=== PATIENT | male | born 1985 | race Caucasian/White ===

== ENCOUNTER 2025-01-17 10:19 | Outpatient (REF) | payer OTHER, SELFPAY ==
[2025-01-17 11:17] LABS: MANUAL DIFF FLAG NO
[2025-01-17 11:23] LABS: Basophils Percent Auto 0.2 % (0-2); Eosinophils Absolute Auto 0.1 X10*3/uL (0.0-0.4); Hematocrit 44.2 % (42.0-52.0); Hemoglobin 15.2 g/dl (14.0-18.0); Imm Gran Abs Auto 0.01 X10*3/uL (0.00-0.03); Imm Gran Pct Auto 0.2 % (0.0-0.4); Lymphocytes Percent Auto 42.4 % (20-40); Mean Corpuscular HGB Conc 34.4 g/dl (31.0-36.0); Mean Corpuscular Hemoglobin 31.3 pg (27.0-33.0); Mean Corpuscular Volume 90.9 fL (80.0-98.0); Mean Platelet Volume 9.6 fL (9.4-12.4); Monocytes Absolute Auto 0.4 X10*3/uL (0.1-1.2); Monocytes Percent Auto 9.3 % (2-11); Neutrophils Absolute Auto 2.1 x10*3/uL (2.0-8.3); Neutrophils Percent Auto 44.9 % (45-73); Platelet Count 196 X10*3/uL (160-400); Red Blood Count 4.86 X10*6/uL (4.60-5.80); Red Cell Distribution Width 12.7 % (11.0-16.0); White Blood Count 4.6 X10*3/uL (4.8-10.8)
--- OUTSIDE RECORDS SUMMARY | 2025-01-17 11:38 | XMS_ITS | Clinical Summary ---
Author Organization [employer] Address [address] [facility] 7[address] [place] [address] Care Team Providers Care Manager Statistics Name Role Phone Leo Card MD Primary Care Provider [phone] Allergies No known active allergies Encounters Date Type Department Care Team Description 01/10/2025 9:00 AM EDT Office Visit [facility] [address] [place] [address] [phone] Leo Card MD RUQ pain (Primary Dx); Herpes genitalis in men; Screening for diabetes mellitus; Screening for cholesterol level; Screening examination for STI 01/10/2025 Travel 01/09/2025 Telephone [facility] [address] [place] [address] [phone] Leo Card MD CHART PREP 01/01/2025 Patient Outreach [facility] [address] [place], [place] [phone] Leo Card MD Pre-visit Planning (SDOH negative, Tobacco screening negative) from Last 3 Months Immunizations Name Administration Dates Next Due Hep A / Hep B 12/13/2017,02/14/2017 Hep A, Adult 02/14/2017 Hep B, adult 03/17/2017 MMR 02/14/2017 Td (adult), 5 Lf tetanus tox oid, preservative free, adsorbed 02/06/2014 Tdap 01/10/2025 Family History Medical History Relation Name Comments Diabetes Father Relation Name Status Comments Father Social History Tobacco Use Types Packs/Day Years Used Date Smoking Tobacco: Never Smokeless Tobacco: Never Tobacco Cessation:Counseling Given: Not Answered Alcohol Use Standard Drinks/Week Comments Never 0 (1 standard drink = 0.6 oz pur e alcohol) Depression Answer Date Recorded Patient Health Questionnaire-9 Score 13 01/10/2025 Patient Health Questionnaire-9 Score 13 01/10/2025 Last PHQ-9: Questionnaire Data Not on file 0 01/10/2025 Housing Stability Answer Date Recorded What is your housing situation today? I have je johnson 01/01/[address] you li ve. Do you have problems with any of the following? None of the above 01/01/2025 Food Insecurity Answer Date Recorded Within the past 12 months, y ou worried that your food would run out before you got money to buy more: Never True 01/01/2025 Within the past 12 months,th e food you bought just didn't last and you didn't have enough money to get more: Never True Transportation Answer Date Recorded In the past 12 months, has l ack of transportation kept you from medical appts, meetings, work or from getting things needed for daily living? No 01/01/2025 Utilities Answer Date Recorded In the past 12 months, has t he electric, gas, oil or water company threatened to shut off services in your home? 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 Not on file Not on file Last Filed Vital Signs Vital Sign Reading Time Taken Comments Blood Pressure 127/86 01/10/2025 9:14 AM EDT Pulse 78 01/10/2025 9:14 AM EDT Temperature 36.6 ??C (97.8 ??F) 01/10/2025 9:14 AM ED T Respiratory Rate 18 01/10/2025 9:14 AM EDT Oxygen Saturation 98% 01/10/2025 9:14 AM EDT Inhaled Oxygen Concentration - - Weight 92.7 kg (204 lb 6.4 oz) 01/10/2025 9:14 A M EDT Height 165.1 cm (5' 5 ) 01/10/2025 9:14 AM EDT Body Mass Index 34.01 01/10/2025 9:14 AM EDT Plan of Treatment Health Maintenance Due Date Last Done Comments HIV Screening 1985 Lipid Panel 1985 Family Planning (PISQ) 2000 Hepatitis C Screening 2003 COVID-19 Vaccine (3 - 2023-2 5 season) 2024 12/12/2021, 11/16/2021 Influenza Vaccine (#1) 2024 Alcohol/Substance Use Screening 01/10/2026 01/10/2025 Depression Screening 01/10/2026 01/10/2025, 01/10/2025 SDOH Screening 01/10/2026 01/10/2025 Tobacco Screening 01/10/2026 01/10/2025 DTaP/Tdap/Td Vaccines (2 - T d or Tdap) 01/10/2035 01/10/2025, 02/06/2014 Zoster Vaccines (1 of 2) 2035 RSV Patients and Patients Aged 60 years or older (1 - 1-dose 75+ series) 2060 Hepatitis A Vaccines Aged Out 12/13/2017, 02/14/2017, 02/14/2017 No longer eligible based on patient's age to complete this topic Hepatitis B Vaccines Completed 12/13/2017, 03/17/2017, 02/14/2017 HIB Vaccines Aged Out No longer eligi ble based on patient's age to complete this topic HPV Vaccines Aged Out No longer eligi ble based on patient's age to complete this topic IPV Vaccines Aged Out No longer eligi ble based on patient's age to complete this topic Meningococcal Vaccine Aged Out No denise clark eligible based on patient's age to complete this topic Pneumococcal Vaccine: Pediatrics (0 to 5 Years) and At-Risk Patients (6 to 49) Years) Aged Out No longer eligible b ased on patient's age to complete this topic RSV under 20 months Aged Out No longe r eligible based on patient's age to complete this topic Rotavirus Vaccines Aged Out No longer eligible based on patient's age to complete this topic Procedures Procedure Name Priority Date/Time Associated Diagnosis Comments CBC WITH AUTO DIFFERENTIAL Routine 01/17/2025 10:22 AM EDT RUQ pain from Last 3 Months Results * (ABNORMAL) CBC auto differential (01/17/2025 10:22 AM EDT) White Blood Count 4.6(L) 4.8 - 10.8 X10*3/uL [facility] Red Blood Count 4.86 4.60 - 5.80 X10*6/uL [facility] Hemoglobin 15.2 14.0 - 18.0 g/dl [facility] Hematocrit 44.2 42.0 - 52.0 % [facility] Mean Corpuscular Volume 90.9 80.0 - 98.0 fL [facility] Mean Corpuscular Hemoglobin 31.3 27.0 - 33.0 pg [facility] Mean Corpuscular HGB Conc 34.4 31.0 - 36.0 g/dl [facility] Red Cell Distribution Width 12.7 11.0 - 16.0 % [facility] Platelet Count 196 160 - 400 X10*3/uL [facility] Mean Platelet Volume 9.6 9.4 - 12.4 fL [facility] Neutrophils Percent Auto 44.9(L) 45 - 73 % [facility] Imm Gran Pct Auto 0.2 0.0 - 0.4 % [facility] Lymphocytes Percent Auto 42.4(H) 20 - 40 % [facility] Monocytes Percent Auto 9.3 2 - 11 % [facility] Eosinophils Percent Auto 3.0 0 - 4 % [facility] Basophils Percent Auto 0.2 0 - 2 % [facility] NRBC Pct Auto 0.0 0.0 - 0.2 /100WBC [facility] Neutrophils Absolute Auto 2.1 2.0 - 8.3 x10*3/uL [facility] Imm Gran Abs Auto 0.01 0.00 - 0.03 X10*3/uL [facility] Lymphocytes Absolute Auto 2.0 1.2 - 4.9 X10*3/uL [facility] Monocytes Absolute Auto 0.4 0.1 - 1.2 X10*3/uL [facility] Eosinophils Absolute Auto 0.1 0.0 - 0.4 X10*3/uL [facility] Basophils Absolute Auto 0.0 0.0 - 0.2 X10*3/uL [facility] NRBC Abs Auto 0.000 0.0 - 0.012 X10*3/uL [facility] Blood Venous blood specimen / Unknown 01/17/2025 10:22 AM EDT 01/17/2025 11:14 AM EDT us Leo Name LAB BLOOD ORDERABLES Final Resul t [facility] [address] [place] [phone] [phone] from Last 3 Months Insurance FOR[facility]LY [facility] OPEN ACCESS Care Teams Manager Statistics Relationship Specialty Start Date End Date Name, MD Leo [address] [place] [phone] PCP - General Internal Medicine 01/10/25
[2025-01-17 12:00] LABS: Alanine Aminotransferase 36 U/L (0-40); Albumin Level 4.5 g/dL (3.5-5.0); Alkaline Phosphatase 70 U/L (39-117); Anion Gap 10 (12-20); Aspartate Amino Transferase 30 U/L (5-37); Bilirubin Total 0.6 mg/dL (0.0-1.0); Blood Urea Nitrogen 25 mg/dL (9-16); Calcium 9.5 mg/dL (8.4-10.2); Carbon Dioxide 29 mmol/L (22-29); Chloride 106 mmol/L (96-108); Cholesterol 165 mg/dL (<200); Estimated Glomerular Filt Rate > 60; Glucose Random 84 mg/dL (60-115); HDL Cholesterol 36 mg/dL (>40); LDL Cholesterol Calculated 100 mg/dL (<100); Potassium 4.3 mmol/L (3.3-5.1); Sodium 141 mmol/L (135-145); Total Protein 7.5 g/dL (6.5-8.0); Triglycerides 146 mg/dL (<150)
[2025-01-17 12:18] LABS: HBS Num1 > 1000.00 mIU/mL (0-7.99); HIV AB/AG Nonreactive (Nonreactive); HIV Num 1 0.06 S/CO (0.00-0.99); Hepatitis B Surface Antigen Negative (Negative); ~Hepatitis B Surface Antibody REACTIVE (Nonreactive); ~Hepatitis C Antibody Nonreactive (Nonreactive)
[2025-01-17 13:29] LABS: CT PCR NOT DETECTED (Not Detect.); NG PCR NOT DETECTED (Not Detect.)
[2025-01-18 09:44] LABS: RPR Rapid Plasma Reagin NON-REACTIVE (NON-REACTIVE)
== END 2025-01-17 10:20 | disposition home or self-care (01) ==
LOC: HO.HHCL 10:19
PROVIDERS: Visit Provider Internal Medicine Geriatric Medicine
DX: Z11.3 Encounter for screening for infections with a predominantly sexual mode of transmission (principal); R10.11 Right upper quadrant pain; Z13.1 Encounter for screening for diabetes mellitus; Z13.220 Encounter for screening for lipoid disorders
CPT/HCPCS: 80053; 80061; 85025; 86592; 86706; 86803; 87340; 87389; 87491; 87591

== ENCOUNTER 2025-02-22 08:39 | Outpatient (REF) | payer OTHER, SELFPAY ==
--- NOTE | ~2025-02-22 | US_ITS ---
CLINICAL HISTORY: RUQ pain on and off sometimes after meals for the past 10 years US ABDOMEN COMPLETE Comparison: None Findings: The visualized portions of the pancreas appear unremarkable. The visualized segments of the IVC and abdominal aorta are normal caliber. The liver is diffusely echogenic. There is a small calcification in the right hepatic lobe. The right hepatic lobe measures 13.8 cm. There is no intrahepatic bile duct dilatation. Common bile duct measures 2.8 mm. There are 1.8 cm and 0.9 cm gallbladder calculi. No significant gallbladder wall thickening. A positive or sonographic Vargas sign was not indicated on the provided worksheet. The main portal vein is antegrade. Right kidney length is 10.4 cm. No hydronephrosis. Left kidney length is 10.3 cm. No hydronephrosis. The spleen is normal. No ascites. IMPRESSION: 1. Cholelithiasis. No significant gallbladder wall thickening or pericholecystic fluid. 2. No biliary ductal dilatation. 3. Hepatic steatosis. 4. No hydronephrosis. This document has been electronically signed by: Lilly Solis DO on 02/22/2025 16:24:17
--- OUTSIDE RECORDS SUMMARY | 2025-02-22 09:05 | XMS_ITS | Clinical Summary ---
Author Organization [employer] Address [address] [place] [address] 7[address] [place] [address] Care Team Providers Care Paramedic Instructor Name Role Phone Leo Card MD Primary Care Provider [phone] Allergies No known active allergies Encounters Date Type Department Care Team Description 01/24/[address] [phone] Susi Smiley [place] april recalls 01/24/[address] [phone] Eleanor Chacon RN 01/10/2025 9:00 AM EDT Office Visit [address] [phone] Leo Card MD RUQ pain (Primary Dx); Herpes genitalis in men; Screening for diabetes mellitus; Screening for cholesterol level; Screening examination for STI 01/10/2025 Travel 01/09/[address] [phone] Leo Card MD CHART PREP 01/01/2025 Patient Outreach [facility] [address] [place], [place] [phone] Leo Card MD Pre-visit Planning (SDOH negative, Tobacco screening negative) from Last 3 Months Immunizations Immunization Administration Dates Next Due Hep A / [...] Health Maintenance Due Date Last Done Comments Disability Screening 1985 Family Planning (PISQ) 2000 COVID-19 Vaccine (3 - 2023-2 5 season) 2024 12/12/2021, 11/16/2021 Influenza Vaccine (Season Ended) 2025 Depression Monitoring 07/12/2025 01/10/2025 , 01/10/2025 Alcohol/Substance Use Screening 01/10/2026 01/10/2025 SDOH Screening 01/10/2026 01/10/2025 Tobacco Screening 01/10/2026 01/10/2025 Lipid Panel 01/17/2030 01/17/2025 DTaP/Tdap/Td Vaccines (2 - T d or Tdap) 01/10/2035 01/10/2025, 02/06/2014 Zoster Vaccines (1 of 2) 2035 RSV Patients and Patients Aged 60 years or older (1 - 1-dose 75+ series) 2060 Hepatitis A Vaccines Aged Out 12/13/2017, 02/14/2017, 02/14/2017 No longer eligible based on patient's age to complete this topic Hepatitis B Vaccines Completed 12/13/2017, 03/17/2017, 02/14/2017 HIV Screening Completed 01/17/2025 Hepatitis C Screening Completed 01/17/2025 HIB Vaccines Aged Out No longer eligi ble based on patient's age to complete this topic HPV Vaccines Aged Out No longer eligi ble based on patient's age to complete this topic IPV Vaccines Aged Out No longer eligi ble based on patient's age to complete this topic Meningococcal B Vaccine Aged Out No l onger eligible based on patient's age to complete [...] Procedure Name Priority Date/Time Associated Diagnosis Comments LIPID PANEL, STANDARD Routine 01/17/2025 10:22 AM EDT Screening for cholesterol level RPR (MONITOR) W/REFL TITER Routine 01/17/2025 10:22 AM EDT Screening examination for STI HEPATITIS B SURFACE ANTIGEN, EIA Routine 01/17/2025 10:22 AM EDT Screening examination for STI HEPATITIS B SURFACE ANTIBODY, QUALITATIVE Routine 01/17/2025 10:22 AM EDT Screening examination for STI HEPATITIS C AB W/REFL TO HCV RNA, QN, PCR Routine 01/17/2025 10:22 AM EDT Screening examination for STI HIV 1/2 ANTIGEN/ANTIBODY, FOURTH GENERATION W/RFL Routine 01/17/2025 10:22 AM EDT Screening examination for STI COMPREHENSIVE METABOLIC PANEL Routine 01/17/2025 10:22 AM EDT Screening for diabetes mellitus RUQ pain CBC WITH AUTO DIFFERENTIAL Routine 01/17/2025 10:22 AM EDT RUQ pain CHLAMYDIA/N. GONORRHOEAE RNA, TMA, UROGENITAL Routine 01/17/2025 10:22 AM EDT Screening examination for STI from Last 3 Months Results * (ABNORMAL) CBC auto differential (01/17/2025 10:22 AM EDT) White Blood Count 4.6(L) 4.8 - 10.8 X10*3/uL [facility] Red Blood Count 4.86 4.60 - 5.80 X10*6/uL [facility] Hemoglobin 15.2 14.0 - 18.0 g/dl [facility] Hematocrit 44.2 42.0 - 52.0 % [facility] Mean Corpuscular Volume 90.9 80.0 - 98.0 fL [facility] Mean Corpuscular Hemoglobin 31.3 27.0 - 33.0 pg [facility] Mean Corpuscular HGB Conc 34.4 31.0 - 36.0 g/dl [facility] Red Cell Distribution Width 12.7 11.0 - 16.0 % [facility] Platelet Count 196 160 - 400 X10*3/uL [facility] Mean Platelet Volume 9.6 9.4 - 12.4 fL [facility] Neutrophils Percent Auto 44.9(L) 45 - 73 % [facility] Imm Gran Pct Auto 0.2 0.0 - 0.4 % [facility] Lymphocytes Percent Auto 42.4(H) 20 - 40 % [facility] Monocytes Percent Auto 9.3 2 - 11 % [facility] Eosinophils Percent Auto 3.0 0 - 4 % [facility] Basophils Percent Auto 0.2 0 - 2 % [facility] NRBC Pct Auto 0.0 0.0 - 0.2 /100WBC [facility] Neutrophils Absolute Auto 2.1 2.0 - 8.3 x10*3/uL [facility] Imm Gran Abs Auto 0.01 0.00 - 0.03 X10*3/uL [facility] Lymphocytes Absolute Auto 2.0 1.2 - 4.9 X10*3/uL [facility] Monocytes Absolute Auto 0.4 0.1 - 1.2 X10*3/uL [facility] Eosinophils Absolute Auto 0.1 0.0 - 0.4 X10*3/uL [facility] Basophils Absolute Auto 0.0 0.0 - 0.2 X10*3/uL [facility] NRBC Abs Auto 0.000 0.0 - 0.012 X10*3/uL [facility] Blood Venous blood specimen / Unknown 01/17/2025 10:22 AM EDT 01/17/2025 11:14 AM EDT us Leo Card MD LAB BLOOD ORDERABLES Final Resul t Performing Organization Address [facility] Co de Phone Number [facility] [address] [place] [phone] * Hepatitis C Antibody with Reflex to HCV, RNA, Quantitative, Real-Time PCR (01/17/2025 10:22 AM EDT) [facility] Hepatitis C Antibody Nonreactive Nonreactive [facility] Comment:Antibodies to HCV no t detected; does not exclude early acuteHCV infection. Blood Venous blood specimen / Unknown 01/17/2025 10:22 AM EDT 01/17/2025 11:14 AM EDT us Leo Card MD LAB BLOOD ORDERABLES Final Resul t Performing Organization Address [facility] Co de Phone Number [facility] [address] [place] [phone] * Chlamydia/N. Gonorrhoeae RNA, TMA, Urogenitial (01/17/2025 10:22 AM EDT) [facility] CT PCR NOT DETECTED Not Detect. [facility] Comment:A not detected test result does not exclude the possibilityof infection because test results can be affected byimproper specimen collection, concurrent antibiotic therapy,or the number of organisms in the specimen which may bebelow the sensitivity of the test. As with many diagnostictests, results from the Xpert CT/NG assay should beinterpreted in conjunction with other laboratory andclinical data available to the clinician.Xpert CT/NG performance has not been evaluated in patientsless than 14 years of age. The assay should not be used forthe evaluationof suspected sexual abuse or for other medico-legalindications. Additional testing is recommended in anycircumstance when false positive or false negative resultscould lead to adverse medical, social or psychologicalconsequences. NG PCR NOT DETECTED Not Detect. [facility] Comment:A not detected test result does not exclude the possibilityof infection because test results can be affected byimproper specimen collection, concurrent antibiotic therapy,or the number of organisms in the specimen which may bebelow the sensitivity of the test. As with many diagnostictests, results from the Xpert CT/NG assay should beinterpreted in conjunction with other laboratory andclinical data available to the clinician.Xpert CT/NG performance has not been evaluated in patientsless than 14 years of age. The assay should not be used forthe evaluationof suspected sexual abuse or for other medico-legalindications. Additional testing is recommended in anycircumstance when false positive or false negative resultscould lead to adverse medical, social or psychologicalconsequences. Urine (Urine, Random) 01/17/2025 10:22 AM EDT 01/17/2025 11:13 AM EDT Narrative [facility] - 01/17/2025 1:29 PM EDT Urine us Leo Card MD LAB MICROBIOLOGY - GENERAL ORDER ABDULAZIZ Final Result Performing Organization Address City/[facility]/ZIP Co de Phone Number [facility] [address] [place] [phone] * Hepatitis B surface antigen, EIA (01/17/2025 10:22 AM EDT) Pathologist [facility] Hepatitis B Surface Ag Negative Negative [facility] Blood Venous blood specimen / Unknown 01/17/2025 10:22 AM EDT 01/17/2025 11:14 AM EDT us Leo Card MD LAB BLOOD ORDERABLES Final Resul t Performing Organization Address [facility] Co de Phone Number [facility] [address] [place] [phone] * RPR (Monitor) with Reflex to??Titer (01/17/2025 10:22 AM EDT) RPR (Monitor) w/Refl Titer NON-REACTI VE NON-REACT CAROLINE [facility] Comment:THIS TEST WAS PERFOR MED AT:[facility] [place] [phone] AGUSTIN MD Rapid Plasma Reagin Ab Titer TNP [facility] Blood Venous blood specimen / Unknown 01/17/2025 10:22 AM EDT 01/17/2025 11:14 AM EDT us Leo Card MD LAB BLOOD ORDERABLES Final Resul t Performing Organization Address City/[facility]/ZIP Co de Phone Number [facility] [address] [place] [phone] * HIV-1/2 Antigen and Antibodies, Fourth Generation, with Reflexes (01/17/2025 10:22 AM EDT) [facility] HIV AB/AG Nonreactive Nonreactive [facility] Comment:HIV-1 p24 Ag and/or HIV-1/HIV-2 Ab not detected.A test result that is nonreactive does not exclude thepossibility of exposure to or infection with HIV-1 and/orHIV-2. Nonreactive results in this assay for individualswith prior exposure to HIV-1 and/or HIV-2 may be due toantigen and antibody levels that are below the limit ofdetection of this assay.The [id number] HIV Ag/Ab Combo assay result andsupplemental assay results should be interpreted inconjunction with the patient's clinical presentation,history and other laboratory results. If the results areinconsistent with clinical evidence, additional testing issuggested to confirm the result. Blood Venous blood specimen / Unknown 01/17/2025 10:22 AM EDT 01/17/2025 11:14 AM EDT us Leo Card MD LAB BLOOD ORDERABLES Final Resul t Performing Organization Address City/[facility]/ZIP Co de Phone Number [facility] [address] [place] [phone] * Hepatitis B Surface Antibody, Qualitative (01/17/2025 10:22 AM EDT) ~Hepatitis B Surface Antibody REACTIVE Nonreactive [facility] Comment:REACTIVE: > 11.99 mI U/mL Blood Venous blood specimen / Unknown 01/17/2025 10:22 AM EDT 01/17/2025 11:14 AM EDT us Leo Card MD LAB BLOOD ORDERABLES Final Resul t Performing Organization Address [facility] Co de Phone Number [facility] [address] [place] [phone] * (ABNORMAL) Lipid Panel, Standard (01/17/2025 10:22 AM EDT) Triglycerides 146 <150 mg/dL [facility] Comment:Desirable Triglyceri de: less than 150 mg/dLBorderline High Triglyceride 150-199 mg/dLHigh Triglyceride: 200-499 mg/dLVery High Triglyceride: greater than or equal to 5OO mg/dL Cholesterol 165 <200 mg/dL [facility] Comment:Desirable Cholestero l: less than 200 mg/dLBorderline High Cholesterol: 200-239 mg/dLHigh Cholesterol: greater than 239 mg/dL LDL Cholesterol Calculated 100(H) <100 mg/dL [facility] Comment:Desirable LDL: less than 100 mg/dLNear Optimal/Above Optimal LDL: 110- 129 mg/dLBorderline High LDL: 130-159 mg/dLHigh LDL: 160-189 mg/dLVery High LDL: greater than or equal to 190 mg/dL HDL Cholesterol 36(L) >40 mg/dL [facility] Comment:Desirable HDL: great er than 40 mg/dL Note: This HDL assay may give artificially low results in patients with liver disease. Blood Venous blood specimen / Unknown 01/17/2025 10:22 AM EDT 01/17/2025 11:14 AM EDT us Leo Card MD LAB BLOOD ORDERABLES Final Resul t Performing Organization Address [facility] Co de Phone Number [facility] [address] [place] [phone] * (ABNORMAL) Comprehensive Metabolic Panel (01/17/2025 10:22 AM EDT) Sodium 141 135 - 145 mmol/L [facility] Potassium 4.3 3.3 - 5.1 mmol/L [facility] Chloride 106 96 - 108 mmol/L [facility] Carbon Dioxide 29 22 - 29 mmol/L [facility] Anion Gap 10(L) 12 - 20 [facility] Urea Nitrogen (BUN) 25(H) 9 - 16 mg/dL [facility] Creatinine, Serum 0.93 0.5 - 1.4 mg/dL [facility] Estimated Glomerular Filt Rate >60 [facility] Comment:Chronic Kidney Disea se: Estimated GFR < 60 mL/min/[id number] Kidney Disease: Estimated GFR < 15 mL/min/1.73m2 Glucose 84 60 - 115 mg/dL [facility] Calcium 9.5 8.4 - 10.2 mg/dL [facility] Bilirubin, Total 0.6 0.0 - 1.0 mg/dL [facility] Aspartate Amino Transferase 30 5 - 37 U/L [facility] Alanine Aminotransferase 36 0 - 40 U/L [facility] Total Protein 7.5 6.5 - 8.0 g/dL [facility] Albumin Level 4.5 3.5 - 5.0 g/dL [facility] Alkaline Phosphatase 70 39 - 117 U/L [facility] Blood Venous blood specimen / Unknown 01/17/2025 10:22 AM EDT 01/17/2025 11:14 AM EDT us Leo Name LAB BLOOD ORDERABLES Final Resul t [facility] [address] [place] [phone] from Last 3 Months Insurance [facility] OPEN ACCESS Care Teams Paramedic Instructor Relationship Specialty Start Date End Date Name, MD Leo [address] [place] [phone] PCP - General Internal Medicine 01/10/25
== END 2025-02-22 08:40 | disposition home or self-care (01) ==
LOC: HO.US 08:39
PROVIDERS: PCP Internal Medicine Geriatric Medicine; Visit Provider Internal Medicine Geriatric Medicine
DX: R10.11 Right upper quadrant pain (principal)
CPT/HCPCS: 76700

== ENCOUNTER → 2025-02-22 08:42 | Outpatient (BNV) | payer OTHER, SELFPAY | PROVIDERS: PCP Internal Medicine Geriatric Medicine; Visit Provider Radiology Diagnostic Radiology | DX: K80.40 Calculus of bile duct with cholecystitis, unspecified, without obstruction (principal) | CPT/HCPCS: 76700 ==

== ENCOUNTER 2025-04-30 12:49 | Outpatient (AMB) | payer OTHER, SELFPAY ==
--- OUTSIDE RECORDS SUMMARY | 2025-04-30 12:54 | XMS_ITS | Clinical Summary ---
Author Organization [email or web address] Address [address] [facility] [address] [place] [address] Care Team Providers Care Blacktop Paver Operator Name Role Phone Name, Leo OLIVIER Primary Care Provider [phone] Allergies No known active allergies Encounters Date Type Department Care Team Description 02/23/2025 Results Follow-Up [facility] [address] [place] [address] Name, MD Leo US Abdomen Complete from Last 3 Months Immunizations Immunization Administration [...] 78 01/10/2025 9:14 AM EDT Temperature 36.6 C (97.8 F) 01/10/2025 9:14 AM EDT Respiratory Rate 18 01/10/2025 9:14 AM EDT [...] Disability Screening 1985 Family Planning (PISQ) 2000 HPV Vaccines (1 - Male 3-dos e series) 2000 COVID-19 Vaccine (3 - 2023-2 5 season) 2024 12/12/2021, 11/16/2021 Influenza Vaccine (#1) 2025 Depression Monitoring 07/12/2025 01/10/2025 , 01/10/2025 [...] Years) and At-Risk Patients (6 to 49) Years Aged Out No longer eligible b ased on patient's age to complete this topic RSV under 20 months Aged Out No longe r eligible based on patient's age to complete this topic Rotavirus Vaccines Aged Out No longer eligible based on patient's age to complete this topic Procedures Procedure Name Priority Date/Time Associated Diagnosis Comments US ABDOMEN COMPLETE Routine 02/22/2025 4 :24 PM EDT RUQ pain HEPATITIS C AB W/REFL TO HCV RNA, QN, PCR Routine 01/17/2025 10:22 AM EDT Screening examination for STI HIV 1/2 ANTIGEN/ANTIBODY, FOURTH GENERATION W/RFL Routine 01/17/2025 10:22 AM EDT Screening examination for STI LIPID PANEL, STANDARD Routine 01/17/2025 10:22 AM EDT Screening for cholesterol level from Last 3 Months or Most Recently Relevant to Health Maintenance Results * US Abdomen Complete (02/22/2025 4:24 PM EDT) Anatomical Region Laterality Modality Abdomen Ultrasound 02/22/2025 4:24 PM EDT Narrative 02/22/2025 4:25 PM EDT [place] [address] Ultrasound Report Signed Patient: Brad Giron MR#: [id number] : 1985 Acct:[id number] Age/Sex: 39 / M ADM Date: 02/22/25 Loc: HO.US Attending Dr: Leo Card MD Ordering Physician: Leo Card MD Date of Service: 02/22/25 Procedure(s): US abdomen complete Accession Number(s): [id number] cc: Leo Card MD CLINICAL HISTORY: RUQ pain on and off sometimes after meals for the past 10 years US ABDOMEN COMPLETE Comparison: None Findings: The visualized portions of the pancreas appear unremarkable. The visualized segments of the IVC and abdominal aorta are normal caliber. The liver is diffusely echogenic. There is a small calcification in the right hepatic lobe. The right hepatic lobe measures 13.8 cm. There is no intrahepatic bile duct dilatation. Common bile duct measures 2.8 mm. There are 1.8 cm and 0.9 cm gallbladder calculi. No significant gallbladder wall thickening. A positive or sonographic Vargas sign was not indicated on the provided worksheet. The main portal vein is antegrade. Right kidney length is 10.4 cm. No hydronephrosis. Left kidney length is 10.3 cm. No hydronephrosis. The spleen is normal. No ascites. IMPRESSION: 1. Cholelithiasis. No significant gallbladder wall thickening or pericholecystic fluid. 2. No biliary ductal dilatation. 3. Hepatic steatosis. 4. No hydronephrosis. This document has been electronically signed by: Lilly Solis DO on 02/22/2025 16:24:17 Dictated By: Lilly Solis MD Signed By: <Electronically signed by Lilly Solis MD in OV> 02/22/25 1625 DD/ 23 TD/TT: 02/22/251623 Learning Solutions Specialist: Procedure Note Donotuseinterpreter, Image - 02/22/2025 [place] [address] Ultrasound Report Signed Patient: Deisy Giron#: [id number] : 1985Acct:[id number] Age/Sex: 39 / MADM Date: 02/22/25 Loc: HO.US Attending Dr: Leo Card MD Ordering Physician: Leo Card MD Date of Service: 02/22/25 Procedure(s): US abdomen complete Accession Number(s): [id number] cc: Leo Card MD CLINICAL HISTORY: RUQ pain on and off sometimes after meals for the past10 years US ABDOMEN COMPLETE Comparison: None Findings: The visualized portions of the pancreas appear unremarkable. The visualized segments of the IVC and abdominal aorta are normal caliber. The liver is diffusely echogenic. There is a small calcification in the right hepatic lobe. The right hepatic lobe measures 13.8 cm. There is no intrahepatic bile duct dilatation. Common bile duct measures 2.8 mm. There are 1.8 cm and 0.9 cm gallbladder calculi. No significant gallbladder wall thickening. A positive or sonographic Vargas sign was not indicated on the provided worksheet. The main portal vein is antegrade. Right kidney length is 10.4 cm. No hydronephrosis. Left kidney length is 10.3 cm. No hydronephrosis. The spleen is normal. No ascites. IMPRESSION: 1. Cholelithiasis. No significant gallbladder wall thickening or pericholecystic fluid. 2. No biliary ductal dilatation. 3. Hepatic steatosis. 4. No hydronephrosis. This document has been electronically signed by: Lilly Solis DO on 02/22/2025 16:24:17 Dictated By: Lilly Solis MD Signed By: <Electronically signed by Lilly Solis MD in OV> 02/22/251624 DD/ 23 TD/TT: 02/22/251623 Learning Solutions Specialist: us Leo Card MD IMG US PROCEDURES Edited Result - Final * Hepatitis C Antibody with Reflex to HCV, RNA, Quantitative, Real-Time PCR (01/17/2025 10:22 AM EDT) Pathologist [facility] Hepatitis C Antibody Nonreactive Nonreactive [facility] Comment:Antibodies to HCV no t detected; does not exclude early acuteHCV infection. Blood Venous blood specimen / Unknown 01/17/2025 10:22 AM EDT 01/17/2025 11:14 AM EDT Leo Card MD LAB BLOOD ORDERABLES Final Resul t Performing Organization Address [facility]/ZIP Co de Phone Number [facility] [address] [place] [phone] * HIV-1/2 Antigen and Antibodies, Fourth Generation, with Reflexes (01/17/2025 10:22 AM EDT) Pathologist [facility] HIV AB/AG Nonreactive Nonreactive [facility] Comment:HIV-1 p24 Ag and/or HIV-1/HIV-2 Ab not detected.A test result that is nonreactive does not exclude thepossibility of exposure to or infection with HIV-1 and/orHIV-2. Nonreactive results in this assay for individualswith prior exposure to HIV-1 and/or HIV-2 may be due toantigen and antibody levels that are below the limit ofdetection of this assay.The [email or web address] HIV Ag/Ab Combo assay result andsupplemental assay results should be interpreted inconjunction with the patient's clinical presentation,history and other laboratory results. If the results areinconsistent with clinical evidence, additional testing issuggested to confirm the result. Blood Venous blood specimen / Unknown 01/17/2025 10:22 AM EDT 01/17/2025 11:14 AM EDT Leo Card MD LAB BLOOD ORDERABLES Final Resul t Performing Organization Address City/[facility]/ZIP Co de Phone Number [facility] [address] [place] [phone] * (ABNORMAL) Lipid Panel, Standard (01/17/2025 10:22 AM EDT) Triglycerides 146 <150 mg/dL [facility] Comment:Desirable Triglyceri de: less than 150 mg/dLBorderline High Triglyceride 150-199 mg/dLHigh Triglyceride: 200-499 mg/dLVery High Triglyceride: greater than or equal to 5OO mg/dL Cholesterol 165 <200 mg/dL [facility] Comment:Desirable Cholestero l: less than 200 mg/dLBorderline High Cholesterol: 200-239 mg/dLHigh Cholesterol: greater than 239 mg/dL LDL Cholesterol Calculated 100(H) <100 mg/dL [facility] Comment:Desirable LDL: less than 100 mg/dLNear Optimal/Above Optimal LDL: 110- 129 mg/dLBorderline High LDL: 130-159 mg/dLHigh LDL: 160-189 mg/dLVery High LDL: greater than or equal to 190 mg/dL HDL Cholesterol 36(L) >40 mg/dL [facility] Comment:Desirable HDL: great er than 40 mg/dL Note: This HDL assay may give artificially low results in patients with liver disease. Blood Venous blood specimen / Unknown 01/17/2025 10:22 AM EDT 01/17/2025 11:14 AM EDT us Leo Name LAB BLOOD ORDERABLES Final Resul t [facility] [address] [place] [phone] from Last 3 Months or Most Recently Relevant to Health Maintenance Insurance [facility] OPEN ACCESS Care Teams Blacktop Paver Operator Relationship Specialty Start Date End Date Name, MD Leo [address] [place] [address] PCP - General Internal Medicine 01/10/25
--- NOTE | 2025-04-30 12:56 | A.OFFVIS_ITS ---
Vital Signs 04/30/25 13:02 Height 5 ft 5 in Weight 205 lb BMI 34.1 BP 124/80 Blood Pressure Location Rt brachial Position Sitting Pulse 86 Intake Visit Reasons: RUQ pain, gallbladder Intake Note: Patient referred by Dr. Card for evaluation and treatment of gallstones. Patient c/o: RUQ pain sometimes vomiting. Denies nausea, diarrhea, constipation. Abdomen US: 02-22-2025 Revenue Cycle Manager Required: No Accompanied by: iris Cornelius Allergies No Known Allergies (No Known Allergies*) Allergy (Unknown, Unverified 04/30/25 13:00) Medication List - Last Reconciled 04/30/25 by Luis Antonio Bennett MD No Known Home Meds HPI HPI RUQ pain, gallbladder: Details: 40-year-old male referred for gallstones. He describes having periodic right upper quadrant pain for several years now. Sometimes, he said he would get celeste seous as well with meals. He was sent for an ultrasound by his primary care physician last February, and who has noticed the gallstones without cholecystitis. He was therefore referred to me He says that he does not think that his symptoms are frequent. He says he is healthy otherwise. He denies any weight loss. [facility] Medical History (Updated 04/30/25 @ 13:21 by Luis Antonio Bennett MD) Gallstones Social History Alcohol intake: never Patient Tobacco Use Status: Never used Tobacco Review of Systems Const Denies chills and Denies fever(s) Card Denies chest pain, Denies dyspnea and Denies dyspnea on exertion Resp Denies cough, Denies dyspnea and Denies dyspnea on exertion GI Denies hematochezia and Denies change in bowel habits Denies hematuria and Denies difficulty urinating Musc Denies back pain and Denies limited range of motion Neuro Denies focal weakness and Denies convulsions Psych Denies depression and Denies mood swings Physical Exam Vital Signs: Last Vital Signs Pulse 86 04/30/25 13:02 BP 124/80 04/30/25 13:02 BMI result Body Mass Index 34.1 Const General: comfortable and no acute distress Orientation/consciousness: patient oriented x3 Neck Neck: Yes no lymphadenopathy Resp Auscultation: clear to auscultation bilaterally Cardio Rhythm: regular rhythm GI Palpation (GI): Soft to palpation, nontender and no guarding Neuro General: patient oriented x3 Assessment & Plan Assessment & Plan (1) Gallstones: Code(s): K80.20 - Calculus of gallbladder without cholecystitis without obstruction Category: Medical Plan: He has gallstones on ultrasound and he describes periodic pain in the right upper quadrant. I did explain to him the option of proceeding with cholecystectomy for symptomatic gallstones. I explained to him the technique of laparoscopic cholecystectomy and possible open cholecystectomy. I reviewed the risks including but not limited to bleeding, infections, injury to other organs including bowel, liver and the bile ducts, bile leak, retained stones, as well as the benefits and alternatives. I reviewed with him what to expect postoperatively He says that he not feel that her symptoms are that frequent at this time. He says he will think about this option of surgery. He says that he will call my office if he decides to proceed His fiancee was with him during the visit. They were both comfortable with the discussion above. I told him that they are welcome to come back to the office any time if they have any questions. Coding Level of Care Code New Pt Level 3 (57439) Diagnoses Gallstones K80.20
[2025-04-30 13:02] VITALS: BP 124/80; PULSE 86; BMI 34.1
== END 2025-04-30 13:18 | disposition home or self-care (01) ==
LOC: HO.HGS 12:50
PROVIDERS: PCP Internal Medicine Geriatric Medicine; Visit Provider Surgery
DX: K80.20 Calculus of gallbladder without cholecystitis without obstruction (principal)
CPT/HCPCS: 99203